=== PATIENT | male | born 1975 | race African-American/Black ===

== ENCOUNTER 2016-10-18 12:58 | Emergency (ER) | payer OTHER ==
[2016-10-18 13:08] VITALS: RESP 18
--- NOTE | 2016-10-18 13:22 | ED ---
General Adult HPI - General Chief complaint: Syncope Stated complaint: syncope Time Seen by Provider: 10/18/16 13:05 Source: patient, EMS, RN notes reviewed Mode of arrival: EMS Limitations: no limitations - History of Present Illness Initial comments: This is a 41-year-old male who presents emergency department with past medical history significant for hypertension for which she states she does not take his blood pressure medicines for months. Patient also states he occasionally uses cocaine. Patient states he is a smoker as well. Patient states all he ate today was a starburst and a Sprite and he got a couple coffee drink a little felt nauseated so decided to get up and go to the bathroom when he got up he became lightheaded and went down to the floor he did not lose consciousness he remembers everything he states he had no chest pain or palpitations he denies any difficulty breathing shortness of breath. Patient states shortly thereafter when EMS arrived he felt much better and didn't feel so he needed to come to the hospital. Patient states currently he feels back to his baseline he has no complaints. Patient denies headache patient denies numbness weakness. Patient denies any recent injury or trauma. Patient denies any recent drug use in the last week. Patient denies alcohol use. - Related Data Home Medications Medication Instructions Recorded Confirmed Isosorbide Mononitrate [Isosorbide 30 mg PO DAILY 01/03/15 10/18/16 Mononitrate ER] cloNIDine HCL [Catapres] 0.1 mg PO Q8H 01/03/15 10/18/16 Previous Rx's Medication Instructions Recorded hydrALAZINE HCL [Apresoline] 50 mg PO TID #90 tab 01/04/15 Allergies Allergy/AdvReac Type Severity Reaction Status Date / Time No Known Allergies Allergy Verified 10/18/16 14:00 Review of Systems ROS Statement: Those systems with pertinent positive or pertinent negative responses have been documented in the HPI. ROS Other: All systems not noted in ROS Statement are negative. Past Medical History Past Medical History: Hypertension, Myocardial Infarction ([place]), Sleep Apnea/CPAP /BIPAP Additional Past Medical History / Comment(s): ? RENAL PROBLMES. CAN'T DRINK MILK , CAUSES DIARRHEA, BUT ABLE TO EAT OTHER DAIRY PRODUCTS INCLUDING CHEESE. Last Myocardial Infarction Date:: History of Any Multi-Drug Resistant Organisms: None Reported Past Surgical History: Heart Catheterization Past Anesthesia/Blood Transfusion Reactions: No Reported Reaction Past Psychological History: No Psychological Hx Reported Smoking Status: Current every day smoker Past Alcohol Use History: Occasional Past Drug Use History: None Reported General Exam - General Exam Comments Initial Comments: GENERAL: Patient is well-developed and well-nourished. Patient is nontoxic and well- hydrated and is in no acute distress. ENT: Neck is soft and supple. No significant lymphadenopathy is noted. Oropharynx is clear. Moist mucous membranes. Neck has full range of motion without eliciting any pain. EYES: The sclera were anicteric and conjunctiva were pink and moist. Extraocular movements were intact and pupils were equal round and reactive to light. Eyelids were unremarkable. PULMONARY: Unlabored respirations. Good breath sounds bilaterally. No audible rales rhonchi or wheezing was noted. CARDIOVASCULAR: There is a regular rate and rhythm without any murmurs gallops or rubs. ABDOMEN: Soft and nontender with normal bowel sounds. No palpable organomegaly was noted. There is no palpable pulsatile mass. Patient is morbidly obese SKIN: Skin is clear with no lesions or rashes and otherwise unremarkable. NEUROLOGIC: Patient is alert and oriented x3. Cranial nerves II through XII are grossly intact. Motor and sensory are also intact. Normal speech, volume and content. Symmetrical smile. MUSCULOSKELETAL: Normal extremities with adequate strength and full range of motion. No lower extremity swelling or edema. No calf tenderness. LYMPHATICS: No significant lymphadenopathy is noted PSYCHIATRIC: Normal psychiatric evaluation. Normal interpersonal interactions appears functionally intact in deals appropriately with others. No signs of depression. No signs of anxiety. Limitations: no limitations Course Vital Signs 10/18/16 10/18/16 13:05 13:24 Temperature 98.2 F Pulse Rate 73 Pulse Rate [ 73 Sitting Package Handler] Pulse Rate [ 76 Standing Package Handler ] Pulse Rate [ 69 Supine Package Handler] Respiratory 18 Rate Blood Pressure 140/89 Blood Pressure 122/82 [Right Arm Sitting] Blood Pressure 125/79 [Right Arm Standing] Blood Pressure 128/85 [Right Arm Supine] O2 Sat by Pulse 97 Oximetry Medical Decision Making - Medical Decision Making EKG shows a normal sinus rhythm at 60 bpm RI interval 150 QRS is 92 QT interval is 452 QTC is 480. Patient's EKG shows no ST segment elevation or depression however patient has T-wave inversions in leads V5 and V6. T-wave inversions in the precordial leads are seen in the old EKG as well. Patient's chest x-ray shows cardiomegaly no active disease. Went into talk to the patient about his mildly elevated troponin he said he never had any chest pain today. And he never actually passed out. I suggested the patient overnight he disagreed and said he wanted to be discharged home since he was asymptomatic since that time he arrived. Patient's urine did show cocaine in his system. I again suggested the patient stay he again said rather calm follow-up with Dr. Carolina - Lab Data Result diagrams: 10/18/16 13:20 10/18/16 13:20 Lab Results 10/18/16 10/18/16 10/18/16 Range/Units 13:20 13:20 13:20 WBC 9.1 (3.8-10.6) k/uL RBC 4.11 L (4.30-5.90) m/uL Hgb 12.9 L (13.0-17.5) gm/dL Hct 39.6 (39.0-53.0) % MCV 96.4 (80.0-100.0) fL MCH 31.3 (25.0-35.0) pg MCHC 32.5 (31.0-37.0) g/dL RDW 13.7 (11.5-15.5) % Plt Count 255 (150-450) k/uL Neutrophils % 57 % Lymphocytes % 30 % Monocytes % 6 % Eosinophils % 5 % Basophils % 1 % Neutrophils # 5.2 (1.3-7.7) k/uL Lymphocytes # 2.7 (1.0-4.8) k/uL Monocytes # 0.5 (0-1.0) k/uL Eosinophils # 0.5 (0-0.7) k/uL Basophils # 0.1 (0-0.2) k/uL PT (9.0-12.0) sec INR (<1.2) APTT (22.0-30.0) sec Sodium 141 (137-145) mmol/L Potassium 4.2 (3.5-5.1) mmol/L Chloride 110 H (98-107) mmol/L Carbon Dioxide 23 (22-30) mmol/L Anion Gap 8 mmol/L BUN 21 H (9-20) mg/dL Creatinine 1.43 H (0.66-1.25) mg/dL Est GFR (MDRD) Af Amer >60 (>60 ml/min/1.73 sqM) Est GFR (MDRD) Non-Af 54 (>60 ml/min/1.73 sqM) Glucose 95 (74-99) mg/dL Calcium 8.7 (8.4-10.2) mg/dL Magnesium 1.7 (1.6-2.3) mg/dL Total Bilirubin 0.6 (0.2-1.3) mg/dL AST 14 L (17-59) U/L ALT 26 (21-72) U/L Alkaline Phosphatase 86 (38-126) U/L Total Creatine Kinase 150 (55-170) U/L CK-MB (CK-2) 1.1 (0.0-2.4) ng/mL CK-MB (CK-2) Rel Index 0.7 Troponin I 0.040 H* (0.000-0.034) ng/mL Total Protein 6.5 (6.3-8.2) g/dL Albumin 3.6 (3.5-5.0) g/dL Urine Opiates Screen (NotDetected) Ur Oxycodone Screen (NotDetected) Urine Methadone Screen (NotDetected) Ur Propoxyphene Screen (NotDetected) Ur Barbiturates Screen (NotDetected) U Tricyclic Antidepress (NotDetected) Ur Phencyclidine Scrn (NotDetected) Ur Amphetamines Screen (NotDetected) U Methamphetamines Scrn (NotDetected) U Benzodiazepines Scrn (NotDetected) Urine Cocaine Screen (NotDetected) U Marijuana (THC) Screen (NotDetected) 10/18/16 10/18/16 Range/Units 13:20 13:40 WBC (3.8-10.6) k/uL RBC (4.30-5.90) m/uL Hgb (13.0-17.5) gm/dL Hct (39.0-53.0) % MCV (80.0-100.0) fL MCH (25.0-35.0) pg MCHC (31.0-37.0) g/dL RDW (11.5-15.5) % Plt Count (150-450) k/uL Neutrophils % % Lymphocytes % % Monocytes % % Eosinophils % % Basophils % % Neutrophils # (1.3-7.7) k/uL Lymphocytes # (1.0-4.8) k/uL Monocytes # (0-1.0) k/uL Eosinophils # (0-0.7) k/uL Basophils # (0-0.2) k/uL PT 11.9 (9.0-12.0) sec INR 1.2 H (<1.2) APTT 25.0 (22.0-30.0) sec Sodium (137-145) mmol/L Potassium (3.5-5.1) mmol/L Chloride (98-107) mmol/L Carbon Dioxide (22-30) mmol/L Anion Gap mmol/L BUN (9-20) mg/dL Creatinine (0.66-1.25) mg/dL Est GFR (MDRD) Af Amer (>60 ml/min/1.73 sqM) Est GFR (MDRD) Non-Af (>60 ml/min/1.73 sqM) Glucose (74-99) mg/dL Calcium (8.4-10.2) mg/dL Magnesium (1.6-2.3) mg/dL Total Bilirubin (0.2-1.3) mg/dL AST (17-59) U/L ALT (21-72) U/L Alkaline Phosphatase (38-126) U/L Total Creatine Kinase (55-170) U/L CK-MB (CK-2) (0.0-2.4) ng/mL CK-MB (CK-2) Rel Index Troponin I (0.000-0.034) ng/mL Total Protein (6.3-8.2) g/dL Albumin (3.5-5.0) g/dL Urine Opiates Screen Not Detected (NotDetected) Ur Oxycodone Screen Not Detected (NotDetected) Urine Methadone Screen Not Detected (NotDetected) Ur Propoxyphene Screen Not Detected (NotDetected) Ur Barbiturates Screen Not Detected (NotDetected) U Tricyclic Antidepress Not Detected (NotDetected) Ur Phencyclidine Scrn Not Detected (NotDetected) Ur Amphetamines Screen Not Detected (NotDetected) U Methamphetamines Scrn Not Detected (NotDetected) U Benzodiazepines Scrn Not Detected (NotDetected) Urine Cocaine Screen Detected H (NotDetected) U Marijuana (THC) Screen Not Detected (NotDetected) Disposition Clinical Impression: Vasovagal episode, Cocaine abuse Disposition: HOME SELF-CARE Instructions: Near Syncope (ED) Additional Instructions: Patient should stop smoking. Patient should not use cocaine. Patient should lose weight. Patient should take blood pressure medications as prescribed. Patient should eat a healthy diet. Patient has new or worsening symptoms patient should return to the emergency department Referrals: Wellington Carolina DO [Primary Care Provider] - 1-2 days Time of Disposition: 14:25
[2016-10-18] MEDS ORDERED: SODIUM CHLORIDE 0.9% 500 ML IV ONE (13:23)
[2016-10-18 13:38] LABS: Basophils # (A) 0.1 k/uL (0-0.2); Basophils % (A) 1 %; CH 31.7; CHCM 33.1; Eosinophils # (A) 0.5 k/uL (0-0.7); Eosinophils % (A) 5 %; HCT 39.6 % (39.0-53.0); HDW 2.42; HGB 12.9 gm/dL (13.0-17.5); Luc # (Auto) 0.14; Luc % (Auto) 2; Lymphocytes # (A) 2.7 k/uL (1.0-4.8); Lymphocytes % (A) 30 %; MCH 31.3 pg (25.0-35.0); MCHC 32.5 g/dL (31.0-37.0); MCV 96.4 fL (80.0-100.0); Mean Platelet Volume 9.4; Monocytes # (A) 0.5 k/uL (0-1.0); Monocytes % (A) 6 %; Neutrophils # (A) 5.2 k/uL (1.3-7.7); Neutrophils % (A) 57 %; RBC 4.11 m/uL (4.30-5.90); RDW 13.7 % (11.5-15.5); WBC 9.1 k/uL (3.8-10.6); WBC (Perox) 9.78
[2016-10-18 13:40] LABS: ALT 26 U/L (21-72); AST 14 U/L (17-59); Alkaline Phosphatase 86 U/L (38-126); Anion Gap 8 mmol/L; Blood Urea Nitrogen 21 mg/dL (9-20); Calcium 8.7 mg/dL (8.4-10.2); Carbon Dioxide 23 mmol/L (22-30); Chloride 110 mmol/L (98-107); Glucose 95 mg/dL (74-99); Magnesium 1.7 mg/dL (1.6-2.3); Non-African American GFR(MDRD) 54 (>60 ml/min/1.73 sqM); Potassium 4.2 mmol/L (3.5-5.1); Sodium 141 mmol/L (137-145); Total Bilirubin 0.6 mg/dL (0.2-1.3); Total Protein 6.5 g/dL (6.3-8.2)
--- NOTE | 2016-10-18 13:43 | XR ---
EXAMINATION TYPE: XR chest 2V DATE OF EXAM: 10/18/2016 COMPARISON: 07/04/2015 HISTORY: Chest pain TECHNIQUE: Frontal and lateral views of the chest are obtained. FINDINGS: There is no heart failure nor pneumonic infiltrate. Heart is enlarged. There are chest kaylin ds. Bony thorax is intact. IMPRESSION: Cardiomegaly. No active cardiopulmonary disease. No change.
[2016-10-18 13:47] LABS: INR 1.2 (<1.2); Prothrombin Time 11.9 sec (9.0-12.0)
[2016-10-18 14:07] LABS: Creatine Kinase MB 1.1 ng/mL (0.0-2.4)
[2016-10-18 14:08] LABS: Troponin I 0.04 ng/mL (0.000-0.034)
[2016-10-18 14:42] VITALS: BP 131/80; PULSE 73; TEMP 98
== END 2016-10-18 14:42 | disposition home or self-care (01) ==
LOC: EC 12:58
DX: R55 Syncope and collapse (principal); F14.10 Cocaine abuse, uncomplicated; I10 Essential (primary) hypertension; I25.2 Old myocardial infarction; F17.200 Nicotine dependence, unspecified, uncomplicated; Z79.899 Other long term (current) drug therapy
CPT/HCPCS: 36415; 71020; 80053; 80306; 82550; 82553; 83735; 84484; 85025; 85610; 85730; 93005; 96360; 99285

== ENCOUNTER → 2018-03-11 | Outpatient (CLI) | payer OTHER ==
[~2018-03-11] MED LIST: ATROPINE SULFATE 0.1 MG/ML 10ML SYRINGE ONE; DOBUTamine DRIP for NUC MED 500 MG in DEXTROSE/WATER 1 250ML.BAG IV ONE
--- NOTE | 2018-03-12 07:20 | ECHOS ---
STRESS ECHOCARDIOGRAM DATE OF SERVICE: 03/11/2018 DOBUTAMINE ECHO INDICATIONS: Hypertension. MEDICATIONS: Carvedilol, amlodipine, besylate. BASELINE HEART RATE: 68 BASELINE BLOOD PRESSURE: 140/70 MAXIMUM HEART RATE: 150 MAXIMUM BLOOD PRESSURE: 189/72 85% MPHR: 150 100% MPHR: 176 METS: MAXIMUM STAGE REACHED: TOTAL EXERCISE TIME: CLINICAL INFORMATION: Baseline EKG revealed normal sinus rhythm with inferolateral nonspecific ST abnormality and poor R-wave progression over precordial leads. With the dobutamine administration and subsequently atropine administration as per protocol, his heart rate went up to 150 beats per minute. Resting heart rate was 68 beats per minute. Resting blood pressure was 140/70 and peak blood pressure was 189/72. The patient did not have any angina or any significant arrhythmia. Rare isolated PVCs were noted. EKG revealed upsloping ST- segment changes, not suggestive of ischemia. By EKG criteria this is an unremarkable dobutamine stress test. Baseline echo images revealed normal wall motion and wall thickening. With dobutamine administration as per protocol there was progressive increase in contractility suggesting that there is no evidence of stress-induced ischemia on this dobutamine echocardiogram. FINAL IMPRESSION: 1. By EKG criteria, this is an unremarkable dobutamine stress echocardiogram. 2. Normal dobutamine stress echocardiogram without any evidence of ischemia with progressive increase in contractility with dobutamine administration. MMODL / IJN: [id number] /
== END | disposition home or self-care (01) ==
LOC: RADNMMAIN 09:40
PROVIDERS: ATTEND Physician Assistant
DX: I10 Essential (primary) hypertension (principal)
CPT/HCPCS: 93351; J1250; J0461

== ENCOUNTER → 2018-03-15 | Outpatient (CLI) | payer OTHER ==
--- NOTE | 2018-03-15 10:14 | US ---
EXAMINATION TYPE: US renal artery duplex complet DATE OF EXAM: 03/15/2018 COMPARISON: NONE CLINICAL HISTORY: I10 essential hypertension. Patient HT 5'10", WT 320lbs; stated takes 3 blood press ure medications. MEASUREMENTS: RENAL SIZE: Rt Kidney: 10.3 x 5.0 x 4.4cm Lt Kidney: 9.7 x 5.0 x 4.6cm RESISTANCE INDEX Right:0.61 Left: 0.68 RA/AO RATIO (< 3.5 ) Right: 1.4 Left: 1.7 RA VELOCITY ( < 180 cm/s) Right: 150.6 mid cm/sec Left: 179 proximal and rechecked at 161.6cm/s Unable to assess right renal artery PSV proximally due to overlying bowel gas. Aorta size is wnl. Bilateral Renal: no hydronephrosis or masses seen. Renal artery duplex: Upper limi ts of normal PSV is noted at proximal left renal artery, but still wnl at 179cm/s. IMPRESSION: Values on the left are upper limits of normal approaching criteria for left-sided renal arterial sten osis however criteria are not met bilaterally for renal arterial stenosis. No hydronephrosis or nephr olithiasis.
== END | disposition home or self-care (01) ==
LOC: RADUSMAIN 08:05
PROVIDERS: ATTEND Physician Assistant
DX: I10 Essential (primary) hypertension (principal)
CPT/HCPCS: 93975

== ENCOUNTER → 2018-04-07 | Outpatient (CLI) | payer OTHER ==
--- NOTE | 2018-04-07 12:02 | CONS ---
CONSULTATION DATE OF SERVICE: 04/07/2018 This 43-year-old gentleman had been evaluated in sleep center for obstructive sleep apnea-hypopnea syndrome. HISTORY OF PRESENT ILLNESS/SLEEP-WAKE EVALUATION: Patient had been diagnosed with severe obstructive sleep apnea-hypopnea syndrome in 2012. He was started on treatment with CPAP, but then for different reason including some broken of some parts of the machine patient stopped using equipment about 5 years ago. Presently his sleep schedule from 1 a.m. to 9 a.m. basically 7 days a week. No problem with falling asleep. No TV in bedroom. He usually sleeps in the stomach position with loud snoring, multiple awakenings from sleep like 4 times with 4 episodes of nocturia. Patient wakes up with dry mouth, panic attacks, has episodes of stopped breathing, gasping for air, sweating. In the morning, patient wakes up tired, falling asleep during the day, has problem with concentration, depression, anxiety, sexual dysfunction. [place] Sleepiness Scale significantly increased to 22. PAST MEDICAL HISTORY: Positive for hypertension, gout, episodes of chest pain. Cardiac cath was negative for coronary artery disease. MEDICATIONS: , isosorbide, allopurinol, carvedilol, amlodipine. SOCIAL HISTORY: Positive for smoking 1 pack a day for about 20 years. Alcohol consumption up to 2 times a week by 2 beers. FAMILY HISTORY: Hypertension, heart problems, asthma, sleep apnea, snoring, cancer. REVIEW OF SYSTEMS: Multiple awakenings from sleep, sleepiness during the day, loud snoring, mild swelling of the feet. PHYSICAL EXAMINATION: During physical exam, gentleman without distress. VITAL SIGNS: BP 142/91, HR 78, RR 16, height 5 feet 10 inches, weight 330, body mass index 47.3, temperature 98.6, oxygen saturation at room air 98%. HEENT: PERRLA, EOMI. Oropharynx extremely low position of soft palate. Mallampati 4. Restriction of nasal breathing more on the left side. NECK: Supple, no JVD. Thyroid is not palpable. LUNGS: Clear to percussion and to auscultation. Good air exchange. No wheezing or rhonchi. HEART: S1, S2 regular. No murmurs, gallops, or rubs. ABDOMEN: Obese. EXTREMITIES: Up to 1+ ankle edema. MUSEUM EXHIBIT TECHNICIAN: Awake, alert, and oriented X3. Cranial nerves 2 to 7 intact. There is no fasciculation or atrophy. noted. No focal deficits observed. IMPRESSION: 1. History of severe sleep apnea, 6 years ago. The patient did not have any CPAP therapy for 5 years. Presently, snoring, witnessed episodes of stopped breathing, multiple awakenings with nocturia and gasping for air, sleepiness, extremely low position of soft palate, wide neck, obstructive sleep apnea-hypopnea syndrome. 2. Obesity, body mass index 47.3. 3. Hypertension. 4. Gout. 5. History of episodes of chest pain with negative results of cardiac cath. 6. Twenty pack-year smoker. The patient continues to smoke. PLAN: 1. Polysomnography for evaluation of patient's breathing during sleep. 2. CPAP/BiPAP titration if sleep study confirms obstructive sleep apnea-hypopnea syndrome. 3. Preferable position during sleep on the side. 4. No driving if patient feels any sleepiness. 5. I will see patient for follow up visit to explain results of testing and following plan. 6. Smoking cessation problem. Thank you very much for referring this patient for evaluation. Sincerely, Jas Porras MD, PhD, FAASM Diplomat of [place] [employer] [facility] MMODL / IJN: [id number] /
== END ==
LOC: SLEEP 10:47
PROVIDERS: ATTEND Internal Medicine
DX: G47.33 Obstructive sleep apnea (adult) (pediatric) (principal); E66.9 Obesity, unspecified; I10 Essential (primary) hypertension; M10.9 Gout, unspecified; R07.9 Chest pain, unspecified; F17.200 Nicotine dependence, unspecified, uncomplicated; Z68.42 Body mass index [BMI] 45.0-49.9, adult; Z99.89 Dependence on other enabling machines and devices; Z79.899 Other long term (current) drug therapy
CPT/HCPCS: 99211

== ENCOUNTER → 2018-04-27 | Outpatient (CLI) | payer OTHER ==
--- NOTE | 2018-04-27 11:13 | CT ---
EXAMINATION TYPE: CT angio abdomen DATE OF EXAM: 04/27/2018 COMPARISON: Ultrasound 03/15/2018 HISTORY: 43-year-old male renal artery stenosis, elevated blood pressure. CT DLP: 1207.5 mGycm, Automated Exposure Control for Dose Reduction was Utilized. CONTRAST: CT scan of the abdomen is performed with oral and without and with IV Contrast, patient injected with 100 mL of Isovue 370. Coronal and sagittal MIP reconstructions performed. 3-D reconstructions gener ated on a dedicated independent workstation. FINDINGS: Heart normal size without pericardial effusion. Lung bases clear without pleural effusion. Arterial phase imaging of the liver, gallbladder, adrenal glands, kidneys, spleen, and pancreas show no gross abnormality. No significant atherosclerotic changes identified in the abdominal aorta or visceral branches. No dilated small bowel, free fluid, or free air. Scattered few nonenlarged mesenteric lymph nodes are present. No mesenteric or peritoneal lymphadenopathy. Mild stool burden. No pericolonic inflammatory change. With attention to the vasculature, the celiac axis is patent as is the SMA. There are Bang bilateral renal arteries without any significant atherosclerotic change within ei ther renal artery. The arteries show normal caliber and contour without any abnormal beaded appearanc e. The ROBBIE is patent. Bones: Degenerative disc disease and facet arthropathy mid to lower lumbar spine. There may be a sign ificant right sided L5-S1 neuroforaminal narrowing. IMPRESSION: The bilateral bang renal arteries are visualized widely patent. No significant atherosclerotic c hange or evidence for renal artery stenosis.
== END ==
LOC: RADCTMAIN 08:37
PROVIDERS: ATTEND Thoracic Surgery (Cardiothoracic Vascular Surgery)
DX: I70.1 Atherosclerosis of renal artery (principal)
CPT/HCPCS: 74175; Q9967

== ENCOUNTER → 2018-06-03 | Outpatient (CLI) | payer OTHER ==
--- NOTE | 2018-06-03 12:42 | SFUN ---
SLEEP CENTER FOLLOW UP NOTE DATE OF SERVICE: 06/03/2018 A 43-year-old gentleman has been followed in sleep center for treatment of obstructive sleep apnea-hypopnea syndrome. Recently, patient had polysomnogram and CPAP titration. I discussed results of sleep studies with patient in detail. Polysomnogram showed severe sleep apnea. During titration his respiration was on control. Subsequently he received CPAP unit today. His first visit after he started treatment with CPAP. The patient feels better with the CPAP, sleeps better, does not snore. He changed the ramp down in the machine because he prefer to get high pressure right away while he is starting it. No significant problems related to mask, mask fitting, pressure or humidification. I checked the CPAP unit. CPAP pressure is 14 cm of water. Usage is 27 out of 30 nights and 17 out of 30 nights more than 4 hours. Average usage is 4.6 hours. Leak is 34 L/minute which is borderline. Apnea-hypopnea index 5.1, which is normal range. [place] Sleepiness Scale today is 19, which is still above 10. MEDICATIONS: , isosorbide, allopurinol, carvedilol, amlodipine. PHYSICAL EXAMINATION: During physical exam, patient in no distress. VITAL SIGNS: BP 154/100. The patient did not take his medications today. VITAL SIGNS: HR 64, RR 14, weight 329, temp 98.4, oxygen saturation at room air 96% open. HEENT: PERRLA, EOMI. Oropharynx low position of soft palate. Mallampati 4. NECK: Supple, no JVD. Thyroid is not palpable. LUNGS: Clear to percussion and to auscultation. Good air exchange. No wheezing or rhonchi. HEART: S1, S2 regular. No murmurs, gallops, or rubs. ABDOMEN: Obese. EXTREMITIES: No clubbing or cyanosis. BARREL HEADER: Awake, alert, and oriented X3. Cranial nerves 2 to 7 intact. There is no fasciculation or atrophy. noted. No focal deficits observed. IMPRESSION: 1. Severe obstructive sleep apnea-hypopnea syndrome; apnea-hypopnea index 77.1 with oxygen desaturation to 69.7% on control with CPAP. The patient benefitting from CPAP treatment. 2. Obesity. 3. Hypertension. 4. Gout. 5. Episodes of chest pain in the past. No any recent episodes of chest pain. PLAN: 1. Patient will continue to use CPAP equipment every night for the whole night. 2. Losing weight. 3. Sleep hygiene with regular time in bed for at least 8 hours. 4. No driving if feeling any sleepiness. Thank you very much for allowing me to participate in management of your patient. Sincerely, Jas Porras MD, PhD, FAASM Diplomat of [employer] [place] [employer] [place] [employer] [facility] MMODL / IJN: [id number] /
== END ==
LOC: SLEEP 11:11
PROVIDERS: ATTEND Internal Medicine
DX: G47.33 Obstructive sleep apnea (adult) (pediatric) (principal); E66.9 Obesity, unspecified; I10 Essential (primary) hypertension; M10.9 Gout, unspecified; Z99.89 Dependence on other enabling machines and devices; Z79.899 Other long term (current) drug therapy

== ENCOUNTER 2019-06-22 09:16 | Emergency (ER) | payer OTHER ==
[2019-06-22 09:26] VITALS: TEMP 97.7
[2019-06-22] MEDS ORDERED: methylPREDNISolone SOD SUCCI 125 MG/2 ML VIAL IV STA (09:32)
[2019-06-22] MEDS ORDERED: FAMOTIDINE 20 MG/2 ML VIAL IV STA (09:32)
[2019-06-22] MEDS ORDERED: diphenhydrAMINE 50 MG/ML 1 ML VIAL IVP STA (09:32)
--- NOTE | 2019-06-22 09:39 | ED ---
ENT HPI - General Chief complaint: ENT Stated complaint: sent by pcp/allergic reaction Time Seen by Provider: 06/22/19 09:27 Source: patient, RN notes reviewed Mode of arrival: ambulatory Limitations: no limitations - History of Present Illness Initial comments: This a 44-year-old male presents emergency Department from PCPs office for possible ALLERGIC reaction. Patient states that he was restarted on his medications after being off for one month and states that he feels like he is having ALLERGIC reaction. He states that he does not take his medications this morning. Patient states that he feels like his throat is really dry which makes it scratchy feeling and sometimes difficult to swallow but states he is able to drink his water in his hand at this time. Patient denies any itchiness no rashes noted. Patient states that these are the same medication as he was on prior. Patient denies any other associated symptoms. Patient has not taken anything for the symptoms. Denies any recent fevers or Chills no URI symptoms. - Related Data Home Medications Medication Instructions Recorded Confirmed Isosorbide Mononitrate [Isosorbide 30 mg PO DAILY 01/03/15 06/22/19 Mononitrate ER] Allopurinol [Zyloprim] 100 mg PO HS 06/22/19 06/22/19 Phentermine HCl 37.5 mg PO DAILY 06/22/19 06/22/19 amLODIPine BESYLATE 10 mg PO DAILY 06/22/19 06/22/19 Allergies Allergy/AdvReac Type Severity Reaction Status Date / Time No Known Allergies Allergy Verified 06/22/19 10:12 Review of Systems ROS Statement: Those systems with pertinent positive or pertinent negative responses have been documented in the HPI. ROS Other: All systems not noted in ROS Statement are negative. Past Medical History Past Medical History: Hypertension, Myocardial Infarction ([place]), Sleep Apnea/CPAP/BIPAP Additional Past Medical History / Comment(s): RENAL PROBLMES Last Myocardial Infarction Date:: History of Any Multi-Drug Resistant Organisms: None Reported Past Surgical History: Heart Catheterization Past Anesthesia/Blood Transfusion Reactions: No Reported Reaction Past Psychological History: No Psychological Hx Reported Smoking Status: Former smoker Past Alcohol Use History: Daily Past Drug Use History: None Reported General Exam Limitations: no limitations General appearance: alert, in no apparent distress Head exam: Present: atraumatic, normocephalic, normal inspection Eye exam: Present: normal appearance, PERRL, EOMI. Absent: scleral icterus, conjunctival injection, periorbital swelling ENT exam: Present: normal exam, normal oropharynx (Patient is swallowing secretions well there are no lesions or sores, no swelling), mucous membranes moist, TM's normal bilaterally, normal external ear exam Neck exam: Present: normal inspection, full ROM. Absent: tenderness (No tenderness with palpation), meningismus, lymphadenopathy Respiratory exam: Present: normal lung sounds bilaterally. Absent: respiratory distress, wheezes, rales, rhonchi, stridor Cardiovascular Exam: Present: regular rate, normal rhythm, normal heart sounds. Absent: systolic murmur, diastolic murmur, rubs, gallop, clicks GI/Abdominal exam: Present: soft, normal bowel sounds. Absent: distended, tenderness, guarding, rebound, rigid Neurological exam: Present: alert, oriented X3, CN II-XII intact Skin exam: Present: warm, dry, intact, normal color. Absent: rash Course Vital Signs 06/22/19 06/22/19 09:24 10:00 Temperature 97.7 F Pulse Rate 89 84 Respiratory 18 16 Rate Blood Pressure 176/109 144/104 O2 Sat by Pulse 95 98 Oximetry - Reevaluation(s) Reevaluation #1: 06/22/19 10:24 Patient reevaluated states that he feels improved he has no difficulty breathing or swallowing. Medical Decision Making - Medical Decision Making Patient presented for dry skin she's sore throat. Patient was sent for concerns of possible ALLERGIC reaction. Patient had labs shows mild elevated renal function. Patient informed of this. Patient states she does feel improved this may be related to ALLERGIES. Patient we discharged advised continue antihistamines return parameters were discussed. - Lab Data Result diagrams: 06/22/19 09:57 06/22/19 09:57 Lab Results 06/22/19 06/22/19 Range/Units 09:57 09:57 WBC 9.8 (3.8-10.6) k/uL RBC 4.20 L (4.30-5.90) m/uL Hgb 13.0 (13.0-17.5) gm/dL Hct 40.3 (39.0-53.0) % MCV 96.0 (80.0-100.0) fL MCH 31.0 (25.0-35.0) pg MCHC 32.2 (31.0-37.0) g/dL RDW 13.0 (11.5-15.5) % Plt Count 329 (150-450) k/uL Neutrophils % 57 % Lymphocytes % 28 % Monocytes % 7 % Eosinophils % 4 % Basophils % 0 % Neutrophils # 5.6 (1.3-7.7) k/uL Lymphocytes # 2.8 (1.0-4.8) k/uL Monocytes # 0.7 (0-1.0) k/uL Eosinophils # 0.4 (0-0.7) k/uL Basophils # 0.0 (0-0.2) k/uL Sodium 138 (137-145) mmol/L Potassium 4.3 (3.5-5.1) mmol/L Chloride 106 (98-107) mmol/L Carbon Dioxide 25 (22-30) mmol/L Anion Gap 7 mmol/L BUN 22 H (9-20) mg/dL Creatinine 1.69 H (0.66-1.25) mg/dL Est GFR (CKD-EPI)AfAm 56 (>60 ml/min/1.73 sqM) Est GFR (CKD-EPI)NonAf 48 (>60 ml/min/1.73 sqM) Glucose 126 H (74-99) mg/dL Calcium 9.2 (8.4-10.2) mg/dL Total Bilirubin 0.5 (0.2-1.3) mg/dL AST 30 (17-59) U/L ALT 20 (4-49) U/L Alkaline Phosphatase 134 H (38-126) U/L Total Protein 7.7 (6.3-8.2) g/dL Albumin 4.2 (3.5-5.0) g/dL Disposition Clinical Impression: Allergies Disposition: HOME SELF-CARE Condition: Stable Instructions (If sedation given, give patient instructions): Allergies (ED) Additional Instructions: Continue daily antihistamines as directed. Please return to the Emergency Department if symptoms worsen or any other concerns. Is patient prescribed a controlled substance at d/c from ED?: No Referrals: Wellington Carolina DO [Primary Care Provider] - 1-2 days Time of Disposition: 10:27
--- NOTE | 2019-06-22 09:56 | XR ---
EXAMINATION TYPE: XR soft tissue neck DATE OF EXAM: 06/22/2019 COMPARISON: NONE HISTORY: Difficulty swallowing TECHNIQUE: 2 views of the soft tissues the neck were obtained FINDINGS: The cervical spine is only seen from C1 through C5. No prevertebral soft tissue swelling at this location. Epiglottis is unremarkable. Nasopharynx and oropharynx appear patent. Supraglottic ai rway appears patent. Infraglottic airway is not seen. On the frontal view lung apices are well aerate d. IMPRESSION: No radiopaque foreign body nor prevertebral soft tissue swelling in the mid or upper cerv ical spine on the lateral view. Lower cervical spine is well seen obscured by the patient's shoulders .
[2019-06-22 10:01] VITALS: RESP 16
[2019-06-22 10:07] LABS: Basophils % (A) 0 %; Eosinophils # (A) 0.4 k/uL (0-0.7); Eosinophils % (A) 4 %; HCT 40.3 % (39.0-53.0); Lymphocytes # (A) 2.8 k/uL (1.0-4.8); Lymphocytes % (A) 28 %; MCHC 32.2 g/dL (31.0-37.0); Mean Platelet Volume 7.8; Monocytes # (A) 0.7 k/uL (0-1.0); Monocytes % (A) 7 %; Neutrophils # (A) 5.6 k/uL (1.3-7.7); Neutrophils % (A) 57 %; Platelet Count 329 k/uL (150-450); WBC 9.8 k/uL (3.8-10.6)
[2019-06-22 10:19] LABS: Albumin 4.2 g/dL (3.5-5.0); Calcium 9.2 mg/dL (8.4-10.2); Potassium 4.3 mmol/L (3.5-5.1); Total Bilirubin 0.5 mg/dL (0.2-1.3); Total Protein 7.7 g/dL (6.3-8.2)
[2019-06-22 10:36] VITALS: BP 136/96; PULSE 69
== END 2019-06-22 10:39 | disposition home or self-care (01) ==
LOC: EC 09:16
DX: J02.9 Acute pharyngitis, unspecified (principal); T50.905A Adverse effect of unspecified drugs, medicaments and biological substances, initial encounter; R13.10 Dysphagia, unspecified; R79.89 Other specified abnormal findings of blood chemistry; I10 Essential (primary) hypertension; I25.2 Old myocardial infarction; G47.30 Sleep apnea, unspecified; Z79.899 Other long term (current) drug therapy; Z99.89 Dependence on other enabling machines and devices; Z87.891 Personal history of nicotine dependence; Z95.5 Presence of coronary angioplasty implant and graft
CPT/HCPCS: 99284; 96374; 96375 ×2; 36415; 80053; 85025; 70360; J1200; J2930

== ENCOUNTER 2020-04-23 17:47 | Emergency (ER) | payer OTHER ==
[2020-04-23 17:55] VITALS: RESP 18
--- NOTE | 2020-04-23 18:04 | ED ---
Skin/Abscess/FB HPI - General Chief complaint: Skin/Abscess/Foreign Body Stated complaint: Throat pain Time Seen by Provider: 04/23/20 17:57 Source: patient, RN notes reviewed Mode of arrival: ambulatory Limitations: no limitations - History of Present Illness Initial comments: 45 she'll male presents immersed department stating that he feels like something is stuck in his throat. He denied any difficulty breathing, difficult swallowing, difficulty drinking, difficulty eating today. He noted that he ate a breakfast sausage yesterday morning swallowed it went down a little bit difficult. He noted that today it felt like it stuck in his throat. He has eaten and drank sent with no adverse reaction or difficulty. He states it is more anxiety than anything at this point and just wants efficaciously fatty is a stroke. He denied nausea vomiting diarrhea constipation fever fatigue chills. - Related Data Home Medications Medication Instructions Recorded Confirmed Isosorbide Mononitrate [Isosorbide 30 mg PO DAILY 01/03/15 06/22/19 Mononitrate ER] Allopurinol [Zyloprim] 100 mg PO HS 06/22/19 06/22/19 Phentermine HCl 37.5 mg PO DAILY 06/22/19 06/22/19 amLODIPine BESYLATE 10 mg PO DAILY 06/22/19 06/22/19 Allergies Allergy/AdvReac Type Severity Reaction Status Date / Time No Known Allergies Allergy Verified 04/23/20 17:53 Review of Systems ROS Statement: Those systems with pertinent positive or pertinent negative responses have been documented in the HPI. ROS Other: All systems not noted in ROS Statement are negative. Past Medical History Past Medical History: Hypertension, Myocardial Infarction ([place]), Sleep Apnea/CPAP/BIPAP Additional Past Medical History / Comment(s): RENAL PROBLMES Last Myocardial Infarction Date:: History of Any Multi-Drug Resistant Organisms: None Reported Past Surgical History: Heart Catheterization Past Anesthesia/Blood Transfusion Reactions: No Reported Reaction Past Psychological History: No Psychological Hx Reported Past Alcohol Use History: Daily Past Drug Use History: None Reported General Exam Limitations: no limitations General appearance: alert, in no apparent distress, obese Head exam: Present: atraumatic, normocephalic, normal inspection Eye exam: Present: normal appearance, PERRL, EOMI. Absent: scleral icterus, conjunctival injection, periorbital swelling ENT exam: Present: normal exam, mucous membranes moist Neck exam: Present: normal inspection. Absent: tenderness, meningismus, lymphadenopathy Respiratory exam: Present: normal lung sounds bilaterally. Absent: respiratory distress, wheezes, rales, rhonchi, stridor Cardiovascular Exam: Present: regular rate, normal rhythm, normal heart sounds. Absent: systolic murmur, diastolic murmur, rubs, gallop, clicks GI/Abdominal exam: Present: soft, normal bowel sounds. Absent: distended, tenderness, guarding, rebound, rigid Extremities exam: Present: normal inspection, full ROM, normal capillary refill. Absent: tenderness, pedal edema, joint swelling, calf tenderness Neurological exam: Present: alert, oriented X3, CN II-XII intact Psychiatric exam: Present: normal affect, normal mood Skin exam: Present: warm, dry, intact, normal color. Absent: rash Course Vital Signs 04/23/20 17:49 Temperature 98.6 F Pulse Rate 98 Respiratory 18 Rate Blood Pressure 188/89 O2 Sat by Pulse 97 Oximetry Medical Decision Making - Medical Decision Making 45 she'll male complains of foreign body stuck in throat. X-ray of the soft tissue of the neck ordered. No pain medication or antiemetic medication ordered due to patient not being in pain or nauseous. X-ray: Negative. Patient had no difficulty drinking or swallowing water while is present in the room. Case discussed with Dr. Samuels, was decided the patient to discharge home. - Radiology Data Radiology results: report reviewed, image reviewed The visualized Soft tissue inhalers are grossly unremarkable. No evidence of radiopaque foreign body no acute osseous abnormality. Disposition Clinical Impression: Dysphagia Disposition: HOME SELF-CARE Condition: Stable Instructions (If sedation given, give patient instructions): Dysphagia (ED) Additional Instructions: Please return to the Emergency Department if symptoms worsen or any other concerns. Follow-up with primary care 1-2 days. Is patient prescribed a controlled substance at d/c from ED?: No Referrals: Wellington Carolina DO [Primary Care Provider] - 1-2 days Time of Disposition: 19:35
--- NOTE | 2020-04-23 19:01 | XR ---
RESULT: HISTORY: Esophageal foreign body TECHNIQUE: 2 views of the neck soft tissues were obtained. COMPARISON: 06/22/2019. FINDINGS: The visualized neck soft tissues and airways are grossly unremarkable. No evidence of radiopaque fore ign body. No acute osseous abnormality. IMPRESSION: No acute process.
[2020-04-23 19:49] VITALS: BP 149/87; PULSE 72; TEMP 98.1
== END 2020-04-23 19:40 | disposition home or self-care (01) ==
LOC: EC 17:47
DX: R13.10 Dysphagia, unspecified (principal); I10 Essential (primary) hypertension; I25.2 Old myocardial infarction; G47.30 Sleep apnea, unspecified; Z99.89 Dependence on other enabling machines and devices; Z79.899 Other long term (current) drug therapy; Z95.5 Presence of coronary angioplasty implant and graft
CPT/HCPCS: 70360; 99283